=== PATIENT | female | born 2000 | race Caucasian/White ===

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

== ENCOUNTER → 2021-06-20 | Outpatient (CLI) | payer SELFPAY | END | disposition home or self-care (01) | LOC: LAB SHORT 23:00 → LAB FUT 06-20 14:50 | DX: R79.89 Other specified abnormal findings of blood chemistry (principal) | CPT/HCPCS: 82533 ==

== ENCOUNTER → 2023-07-03 | Outpatient (CLI) | payer BC ==
[2023-07-05 03:11] LABS: CHLAMYDIA TRACHOMATIS, NAA Negative (Negative)
== END ==
LOC: LAB 16:46 → LAB SHORT 16:46
PROVIDERS: Advanced Practice Midwife
DX: Z11.3 Encounter for screening for infections with a predominantly sexual mode of transmission (principal)
CPT/HCPCS: 87491; 87591

== ENCOUNTER 2023-10-20 15:32 | Emergency (ER) | payer BC ==
[~2023-10-20] VITALS: Ht 165.1 cm; Wt 106.6 kg
[2023-10-20 15:42] VITALS: BP 154/107
[2023-10-20] MEDS ORDERED: AZIT250 PO (16:00)
[2023-10-20] MEDS ORDERED: AMOX-CLAV 875-1 EAC5 PO (16:00)
[2023-10-20] MEDS ORDERED: BEYAZ 28 TABLE1 EACH PO (16:01)
[2023-10-20] MEDS ORDERED: ESCI20 PO (16:01)
[2023-10-20 16:04] LABS: Hematocrit 39.7 % (33.0-51.0); Hemoglobin 13.5 g/dL (11.5-16.0); Mean Corpuscular Volume 79 fL (80-100); Mean Platelet Volume 7.7 fL (9.1-12.4); Platelet Count 362 K/mm3 (150-400); RDW Coefficient Variation 13.1 % (11.7-14.2); RDW Standard Deviation 37.1 fL (35.1-46.3); White Blood Cell Count 8.09 K/mm3 (4.00-11.30)
[2023-10-20 16:22] LABS: BASOPHILS PERCENT MAN 0 % (0-2); EOSINOPHILS ABSOLUTE MAN 0.16 K/mm3 (0.00-0.68); EOSINOPHILS PERCENT MAN 2 % (0-6); LYMPHOCYTES % ATYPICAL MANUAL 1 % (0-0); LYMPHOCYTES ABSOLUTE MAN 2.66 K/mm3 (0.84-5.20); LYMPHOCYTES PERCENT MAN 32 % (21-46); MONOCYTES ABSOLUTE MAN 0.24 K/mm3 (0.16-1.47); MONOCYTES PERCENT MAN 3 % (4-13); NEUTROPHILS ABSOLUTE MAN 5.01 K/mm3 (1.96-9.15); SEG NEUTROPHILS PERCENT MAN 62 % (41-73); TOTAL CELLS COUNTED 100
[2023-10-20 16:28] LABS: Albumin, Blood 3.4 g/dL (3.4-5.0); Albumin/Globulin Ratio 0.6 (0.8-1.8); Bilirubin, Total 0.3 mg/dL (0.1-1.0); Bun/Creatinine Ratio 17.6 (12.0-20.0); Creatinine, Blood 0.62 mg/dL (0.40-1.00); Globulin, Blood 5.3 g/dL (2.2-4.0); Potassium, Blood 3.5 mmol/L (3.5-5.5); Total Protein, Blood 8.7 g/dL (6.4-8.2)
[2023-10-20] MEDS ORDERED: Diflucan100 MG PO (17:54)
== END 2023-10-20 19:09 | disposition home or self-care (01) ==
LOC: ER 15:32
PROVIDERS: Physician Assistant
DX: J02.9 Acute pharyngitis, unspecified (principal); B37.0 Candidal stomatitis
CPT/HCPCS: 70491; 80053; 84703; 85025; 86308; 96361; 96374-59; 99283-25; A9270; J1100; J1885; J7030; Q9967

== ENCOUNTER → 2023-10-24 | Outpatient (CLI) | payer BC ==
[~2023-10-24] MED LIST: AMOX-CLAV 875-1 EAC5 PO; AZIT250 PO; BEYAZ 28 TABLE1 EACH PO; Diflucan100 MG PO; ESCI20 PO
== END ==
LOC: LAB SHORT 18:35 → LAB 18:35
DX: J02.0 Streptococcal pharyngitis (principal)
CPT/HCPCS: 87070; 87077; 87186; 87205

== ENCOUNTER → 2023-11-08 | Outpatient (CLI) | payer BC | END | disposition home or self-care (01) | LOC: LAB SHORT 16:05 | DX: J03.90 Acute tonsillitis, unspecified (principal) | CPT/HCPCS: 87081 ==

== ENCOUNTER 2024-01-22 07:53 | Day surgery (SDC) | payer BC ==
[~2024-01-22] VITALS: Ht 165.1 cm; Wt 101.9 kg
[~2024-01-22 07:53] MED LIST changes: +Lactated Ringer's 1,000 ML IV ONE
[2024-01-22] MEDS ORDERED: Lactated Ringer's 1,000 ML IV ONE (07:56)
[2024-01-22] MEDS ORDERED: BEYAZ 28 TABLE1 EACH PO (08:02)
[2024-01-22] MEDS ORDERED: ZYRTEC10 M2 PO (08:02)
[2024-01-22] MEDS ORDERED: METF500 PO (08:02)
[2024-01-22] MEDS ORDERED: Dexamethasone Sod Phos 10 MG/ML 1ML VIAL ONE (09:30)
[2024-01-22] MEDS ORDERED: FentaNYL Citrate 50 MCG/ML 2 ML Injection ONE ×2 (09:30→10:21)
[2024-01-22] MEDS ORDERED: propofoL 20 ML IV ONE (09:30)
[2024-01-22] MEDS ORDERED: Ondansetron HCl 2 MG / ML 2ML Vial ONE (09:30)
[2024-01-22] MEDS ORDERED: Rocuronium Bromide 10 MG/ML 5ML Injection IV ONE (09:30)
[2024-01-22] MEDS ORDERED: Sugammadex Sodium 200 MG/2ML SDV (100 MG/ML) ONE (10:07)
[2024-01-22 10:41] VITALS: BP 131/89
== END 2024-01-22 11:21 | disposition home or self-care (01) ==
LOC: ORSCSDS 07:53
PROVIDERS: Otolaryngology
PROC: 0CTPXZZ Resection of Tonsils, External Approach (ICD-10-PCS; principal; 2024-01-22 09:15)
DX: J35.01 Chronic tonsillitis (principal); E66.9 Obesity, unspecified; Z68.37 Body mass index [BMI] 37.0-37.9, adult; Z79.899 Other long term (current) drug therapy
CPT/HCPCS: 82947; 88304; J1100; J2405; J2704; J3010; J7120

== ENCOUNTER → 2024-07-17 | Outpatient (CLI) | payer BC ==
[~2024-07-17] MED LIST changes: -Lactated Ringer's 1,000 ML IV ONE; +METF500 PO; +ZYRTEC10 M2 PO
[2024-07-17 15:43] LABS: Bacterial Vaginosis PCR Negative (NEGATIVE); Candida Group, PCR NOT DETECTED (NOT DETECT); Candida glabrata-krusei, PCR NOT DETECTED (NOT DETECT)
[2024-07-21 21:25] LABS: APTIMA MEDIA TYPE Unisex Swab; C. TRACHOMATIS BY TMA Negative (Negative); N. GONORRHOEAE BY TMA Negative (Negative); SPECIMEN SOURCE Vaginal
== END ==
LOC: LAB SHORT 10:48 → LAB 10:48
PROVIDERS: Advanced Practice Midwife
DX: N76.0 Acute vaginitis (principal); Z11.3 Encounter for screening for infections with a predominantly sexual mode of transmission
CPT/HCPCS: 87481; 87491; 87591; 87661; 87801

== ENCOUNTER → 2025-09-01 | Outpatient (CLI) | payer BC ==
[~2025-09-01] MED LIST changes: +AMOCLA875 PO; +OZEMPIC0.25 MG/02; +SPIR25
== END | disposition home or self-care (01) ==
LOC: LAB SHORT 11:48 → LAB 11:48
PROVIDERS: Advanced Practice Midwife
DX: Z01.419 Encounter for gynecological examination (general) (routine) without abnormal findings (principal)
CPT/HCPCS: G0145